=== PATIENT | female | born 1975 | race African-American/Black ===

== ENCOUNTER 2025-05-12 17:42 | Emergency (ER) | payer MEDICAID ==
[~2025-05-12] VITALS: Ht 172.7 cm; Wt 80.0 kg
[2025-05-12 17:51] VITALS: O2SAT 99
[2025-05-12 19:12] LABS: BASOPHILS % 0.5 % (0.0-2.0); EOSINOPHILS % 0.7 % (0.0-5.0); HEMATOCRIT. 43.4 % (36.0-48.0); HEMOGLOBIN. 14.7 g/dL (12.0-16.0); LYMPHOCYTES % 44.1 % (20.0-50.0); MEAN PLATELET VOLUME 9.4 fl (7.4-10.4); MONOCYTES % 6.6 % (2.0-8.0); NEUTROPHILS % 48.1 % (40.0-76.0); PLATELET 307 x1000/uL (130-400); RED BLOOD CELL COUNT 4.80 mill/uL (4.2-5.4); RED CELL DISTRIBUTION WIDTH 15.1 % (11.6-14.6)
[2025-05-12 19:26] LABS: CREATININE 1.1 mg/dL (0.6-1.0); UREA NITROGEN BLOOD 9 mg/dL (9-23)
[2025-05-12 19:28] LABS: ASPARTATE AMINOTRANSFERASE 36 IU/L (<34); BILIRUBIN DIRECT 0.2 mg/dL (<=3.0); BILIRUBIN TOTAL 0.6 mg/dL (0.1-1.0); PROTEIN TOTAL 7.7 g/dL (6.0-8.3)
[2025-05-12] MEDS: ONDANSETRON HCL 4MG/2ML INJ IV STA (19:37)
[2025-05-12] MEDS: MAGNESIUM/ALUMINUM HYDROXIDE/SIMETHICONE 30ML UDC PO STA (19:39)
[2025-05-12] MEDS: SODIUM CHLORIDE 0.9% 1,000 ML IV ONE (19:44)
[2025-05-12] MEDS ORDERED: ONDA-239 PO (20:36)
[2025-05-12 20:49] LABS: INR 1.0
[2025-05-12 21:16] VITALS: BP 121/66; PULSE 65; RESP 16; TEMP 37.2; O2SAT 98
== END 2025-05-12 21:25 | disposition home or self-care (01) ==
LOC: ER 17:42
DX: R11.2 Nausea with vomiting, unspecified (principal); R19.7 Diarrhea, unspecified; E11.9 Type 2 diabetes mellitus without complications
CPT/HCPCS: 99283; 96374; 96361; 80076; 80048; 83690; 85025; 85610; 36415; J2405; J7030

== ENCOUNTER 2025-05-26 17:59 | Emergency (ER) | payer MEDICAID ==
[~2025-05-26] VITALS: Ht 167.6 cm; Wt 65.0 kg
[~2025-05-26 17:59] MED LIST: ONDA-239 PO
[2025-05-26 18:07] VITALS: O2SAT 100
[2025-05-26 19:22] LABS: CLARITY URINE CLEAR (CLEAR); COLOR URINE YELLOW (YELLOW); GLUCOSE URINE NEGATIVE (NEGATIVE); KETONES URINE NEGATIVE (NEGATIVE); LEUKOCYTE ESTERASE URINE NEGATIVE (NEGATIVE); NITRITE URINE NEGATIVE (NEGATIVE); OCCULT BLOOD URINE TRACE (NEGATIVE); PH URINE 5.0 (4.5-8.0); PROTEIN URINE NEGATIVE (NEGATIVE); SPECIFIC GRAVITY URINE 1.011 (1.005-1.030); UROBILINOGEN URINE 0.2 E.U./dL (0.2-1.0)
[2025-05-26 19:33] LABS: BASOPHILS % 0.3 % (0.0-2.0); EOSINOPHILS % 0.9 % (0.0-5.0); HEMATOCRIT. 42.5 % (36.0-48.0); HEMOGLOBIN. 14.1 g/dL (12.0-16.0); LYMPHOCYTES % 49.1 % (20.0-50.0); MEAN PLATELET VOLUME 9.1 fl (7.4-10.4); MONOCYTES % 7.0 % (2.0-8.0); NEUTROPHILS % 42.7 % (40.0-76.0); PLATELET 248 x1000/uL (130-400); RED BLOOD CELL COUNT 4.74 mill/uL (4.2-5.4); RED CELL DISTRIBUTION WIDTH 14.4 % (11.6-14.6)
[2025-05-26 19:48] LABS: CREATININE 1.4 mg/dL (0.6-1.0)
[2025-05-26 19:49] LABS: UREA NITROGEN BLOOD 18 mg/dL (9-23)
[2025-05-26 19:50] LABS: ASPARTATE AMINOTRANSFERASE 23 IU/L (<34)
[2025-05-26 19:51] LABS: BILIRUBIN DIRECT 0.2 mg/dL (<=3.0); BILIRUBIN TOTAL 0.6 mg/dL (0.1-1.0); HCG SCREEN NEGATIVE; PROTEIN TOTAL 8.0 g/dL (6.0-8.3)
[2025-05-26 20:05] LABS: BACTERIA URINE NONE SEEN; HYALINE CASTS URINE 0-5 /lpf; RBC URINE NONE SEEN /hpf (0-2); WBC URINE 0-2 /hpf (0-2); WHITE BLOOD CELL CASTS URINE 0-5 /lpf
[2025-05-26 21:33] VITALS: BP 102/78; PULSE 78; RESP 22; TEMP 37.2; O2SAT 98
[2025-05-26] MEDS: POTASSIUM CHLORIDE 20MEQ TABLET SR PO SCH (21:36)
== END 2025-05-26 21:42 | disposition home or self-care (01) ==
LOC: ER 17:59
DX: R10.30 Lower abdominal pain, unspecified (principal); J45.909 Unspecified asthma, uncomplicated; I10 Essential (primary) hypertension; E11.9 Type 2 diabetes mellitus without complications; Z98.890 Other specified postprocedural states
CPT/HCPCS: 36415; 74176; 80048; 80076; 81003; 82550; 82962; 84703; 85025; 99284